=== PATIENT | female | born 1940 ===

== ENCOUNTER 2023-08-17 08:44 | Outpatient (CLI) | payer MEDICARE, OTHER, SELFPAY ==
--- NOTE | ~2023-08-17 | DEXA_ITS ---
Bone Density Report Name: BRANDON TRAN Age: 83 Sex: Female Ethnicity: White Date of : 1940 Indication: postmenopausal; screening for osteoporosis; height loss; hysterectomy; Referring Provider: FERCHO, GERMANIA Chau Study: Bone densitometry was performed. Exam Date: August 17, 2023 Accession number: [id number] Bone Density: Region BMD T-score Z-score Classification AP Spine (L1-L4) 0.993 -0.5 2.3 Normal Femoral Neck (Left) 0.739 -1.0 1.4 Normal Total Hip (Left) 1.003 0.5 2.7 Normal Femoral Neck (Right) 0.796 -0.5 1.9 Normal Total Hip (Right) 1.014 0.6 2.8 Normal Total Hip Mean 1.009 0.6 2.8 Normal World Health Organization criteria for BMD impression classify patients as: Normal (T-score at or above -1.0), Osteopenia (T-score between -1.0 and -2.5), or Osteoporosis (T-score at or below -2.5). 10-year Fracture Risk: FRAX not reported because: All T-scores for Spine Total, Hip Total, Femoral Neck at or above -1.0 Clinical Information Provided by Patient: Has the following medical conditions: Hysterectomy, HX OF RIGHT BREAST CA (DCIS) W/ MASTECTOMY - 2008 Patient maximum height was 65.5 Menopause Age: 40 No regular weight bearing exercise Drinks caffeinated beverages Onset of menses at age 13 Number of children 2 Impression: The patient has normal bone mass. Discussion: BONE DENSITY IS ABOVE THE MINIMUM DESIRABLE LEVEL AT ALL SKELETAL SITES TESTED. This patient?s bone mineral density is above the minimum desirable level (T-score -1.0 or better) at all sites measured. The patient should follow a healthful lifestyle (good nutrition with adequate calcium and vitamin D, and appropriate weight-bearing exercise). Follow-Up: Consider repeating this study in 5 years or sooner if there is some new clinical indication. Reported by: LAINE on 08/18/2023 11:31:00 AM. Reviewed, dictated and finalized at location [facility]
== END 2023-08-17 08:45 ==
LOC: MICIMG 08:48
PROVIDERS: PCP Family Medicine; Visit Provider Family Medicine
DX: Z13.820 Encounter for screening for osteoporosis (principal); Z90.710 Acquired absence of both cervix and uterus; Z78.0 Asymptomatic menopausal state
CPT/HCPCS: 77080